=== PATIENT | female | born 1995 | race Caucasian/White ===

== ENCOUNTER 2018-03-10 13:34 | Emergency (ER) | payer BC ==
[~2018-03-10] VITALS: Ht 162.6 cm; Wt 54.4 kg
[2018-03-10 14:03] VITALS: BP_SYST 126
[2018-03-10 15:20] LABS: BASOPHILS # (AUTO) 0.1 K/uL (0.0-0.2); BASOPHILS % (AUTO) 1.5 % (0.0-2.0); EOSINOPHILS % (AUTO) 0.9 % (0.0-4.0); HEMATOCRIT 43.2 % (36-48); HEMOGLOBIN 14.3 g/dL (12.0-16.0); LYMPHOCYTES # (AUTO) 1.2 K/uL (1.0-5.5); LYMPHOCYTES % (AUTO) 22.7 % (20.5-51.5); MEAN CORPUSCULAR HEMOGLOBIN 29 pg (27-31); MEAN CORPUSCULAR HGB CONC 33 % (32-36); MEAN CORPUSCULAR VOLUME 89 fL (79.0-98.0); MONOCYTES # (AUTO) 0.4 K/uL (0.0-1.0); MONOCYTES % (AUTO) 7.3 % (1.7-9.3); NEUTROPHILS # (AUTO) 3.5 K/uL (1.8-7.7); NEUTROPHILS % (AUTO) 67.6 % (40.0-70.0); PLATELET COUNT (AUTO) 258 K/uL (130-430); RED BLOOD CELL COUNT(AUTO) 4.87 MIL/uL (4.2-6.2); RED CELL DISTRIBUTION WIDTH 11.8 % (9.0-15.0); WHITE BLOOD COUNT (AUTO) 5.2 K/uL (4.8-10.8)
[2018-03-10 15:56] LABS: POTASSIUM 4.2 mmol/L (3.5-5.1)
[2018-03-10 15:57] LABS: CALCIUM 9.5 mg/dL (8.4-11.0); CREATININE 0.69 mg/dL (0.55-1.30)
[2018-03-10 16:09] LABS: TOTAL BILIRUBIN 0.5 mg/dL (0.0-1.0)
[2018-03-10 16:10] LABS: ALBUMIN 4.2 g/dL (3.4-4.8)
[2018-03-10 16:40] VITALS: BP_SYST 120
== END 2018-03-10 16:40 | disposition home or self-care (01) ==
LOC: SED 13:34
DX: R00.2 Palpitations (principal); F41.9 Anxiety disorder, unspecified; J45.909 Unspecified asthma, uncomplicated; K21.9 Gastro-esophageal reflux disease without esophagitis; R03.0 Elevated blood-pressure reading, without diagnosis of hypertension; Z91.041 Radiographic dye allergy status
CPT/HCPCS: 36415; 80053; 81025; 84484; 85025; 93005; 99284

== ENCOUNTER 2018-05-10 12:34 | Emergency (ER) | payer BC ==
[~2018-05-10] VITALS: Ht 162.6 cm; Wt 53.1 kg
[2018-05-10 12:35] VITALS: BP_SYST 120
[2018-05-10 13:23] LABS: BILIRUBIN,URINE NEGATIVE (NEGATIVE); BLOOD, URINE 1+ (NEGATIVE); CLARITY/URINE CLEAR (CLEAR); COLOR,URINE YELLOW (YELLOW); GLUCOSE,URINE NEGATIVE (NEGATIVE); KETONES,URINE NEGATIVE (NEGATIVE); LEUKOCYTE ESTERASE ,URINE 1+ (NEGATIVE); NITRITE, URINE NEGATIVE (NEGATIVE); PROTEIN URINE NEGATIVE (NEGATIVE); UROBILINOGEN,URINE 0.2 (0.2-1.0)
[2018-05-10 14:00] LABS: BACTERIA,URINE FEW /HPF (None Seen); MUCUS,URINE None Seen /LPF (None Seen); RBC,URINE 0-3 /HPF (0-3)
[2018-05-10 15:20] VITALS: BP_SYST 118
== END 2018-05-10 15:20 | disposition home or self-care (01) ==
LOC: SED 12:34
DX: N39.0 Urinary tract infection, site not specified (principal); F41.9 Anxiety disorder, unspecified; K21.9 Gastro-esophageal reflux disease without esophagitis; J45.909 Unspecified asthma, uncomplicated; Z91.041 Radiographic dye allergy status
CPT/HCPCS: 81000-TC; 81025; 87086; 99283